=== PATIENT | female | born 1945 | race Caucasian/White ===

== ENCOUNTER 2016-12-11 14:10 | Emergency (ER) | payer MEDICARE, BC ==
--- NOTE | 2016-12-11 17:07 | UC ---
Complaint Female HPI - HPI Summary HPI Summary: Pt c/o sudden onset of dysuria, frequency and urgency X 4 days. Pt's last UTI ~ 3 months ago - History Of Current Complaint Chief Complaint: UCGU Stated Complaint: URINARY Time Seen by Provider: 12/11/16 16:02 Hx Obtained From: Patient ?: No Onset/Duration: Sudden Onset, Lasting Days Timing: Constant Severity Initially: Mild Severity Currently: Mild Pain Intensity: 2 Pain Scale Used: 0-10 Numeric Character: Dull, Burning Aggravating Factor(s): Urination Associated Signs And Symptoms: Positive: Negative - Allergies/Home Medications Allergies/Adverse Reactions: Allergies Allergy/AdvReac Type Severity Reaction Status Date / Time Morphine Allergy Hives Verified 12/11/16 14:36 Home Medications: Home Medications Atorvastatin* [Lipitor 10 MG*] 10 mg PO QPM 12/11/16 [History Confirmed 12/11/16 ] BuPROPion XL* [Bupropion XL*] 300 mg PO DAILY 12/11/16 [History Confirmed ] Bupropion HCl [Bupropion HCl Xl] 150 mg PO BEDTIME 12/11/16 [History Confirmed 12/11/16] Enalapril TAB* [Vasotec TAB*] 20 mg PO BID 12/11/16 [History Confirmed 12/11/16] Escitalopram Oxalate [Lexapro 20 mg] 20 mg PO DAILY 12/11/16 [History Confirmed 12/11/16] Ferrous Fumarate W/ B12-Vit C- [Ferocon] 1 cap PO BID 12/11/16 [History Confirmed 12/11/16] Loratadine 10 mg PO DAILY 12/11/16 [History Confirmed 12/11/16] Metoprolol Tartrate TAB* [Lopressor TAB*] 100 mg PO DAILY 12/11/16 [History Confirmed 12/11/16] Omeprazole CAP* [Prilosec CAP* 20 MG] 20 mg PO BID 12/11/16 [History Confirmed 12/11/16] Ropinirole Hydrochloride [Requip] 1 mg PO QID 12/11/16 [History Confirmed ] PMH/Surg Hx/FS Hx/Imm Hx Previously Healthy: Yes - Surgical History Surgical History: Yes Surgery Procedure, Year, and Place: GASTRIC BYPASS. TKA--R KNEE. TKA--LEFT KNEE X 4. CHOLECYSTECTOMY. TRIGGER FINGER RELEASE--RIGHT HAND. INTESTINAL HERNIA REPAIR - Family History Known Family History: Positive: Cardiac Disease - Social History Occupation: Retired Lives: With Family Alcohol Use: Rare Substance Use Type: None Smoking Status (MU): Current Some Day Smoker Type: Cigarettes Amount Used/How Often: 4 CIGS PER MONTH Length of Time of Smoking/Using Tobacco: 40 YRS Have You Smoked in the Last Year: Yes Review of Systems Constitutional: Negative Skin: Negative Eyes: Negative ENT: Negative Respiratory: Negative Cardiovascular: Negative Gastrointestinal: Negative Genitourinary: Dysuria, Frequency, Urgency Motor: Negative Neurovascular: Negative Musculoskeletal: Negative Neurological: Negative Psychological: Negative Is Patient Immunocompromised?: No All Other Systems Reviewed And Are Negative: Yes Physical Exam Triage Information Reviewed: Yes Appearance: Well-Appearing Vital Signs: Initial Vital Signs Temp 97.5 F 12/11/16 14:19 Pulse 59 12/11/16 14:19 Resp 18 12/11/16 14:19 BP 136/83 12/11/16 14:19 Pulse Ox 100 12/11/16 14:19 Vital Signs Reviewed: Yes Eye Exam: Normal ENT Exam: Normal Neck exam: Normal Respiratory Exam: Normal Cardiovascular Exam: Normal Abdominal Exam: Normal Musculoskeletal Exam: Normal Neurological Exam: Normal Psychological Exam: Normal Skin Exam: Normal Complaint Female Dx - Course Course Of Treatment: I discussed the UA results with the pt. - Differential Dx/Diagnosis Differential Diagnosis/HQI/PQRI: Urinary Tract Infection Provider Diagnoses: UTI Discharge - Discharge Plan Condition: Stable Disposition: HOME Prescriptions: Phenazopyridine TAB* [Pyridium 100 mg TAB*] 100 mg PO TID #6 tab Sulfamethox/Trimethoprim DS* [Bactrim DS 800/160 TAB*] 1 tab PO Q12H #10 tab Patient Education Materials: Urinary Tract Infection in Women (ED) Referrals: Yaima Ledbetter MD [Primary Care Provider] - If Needed Additional Instructions: Please follow up with your PCP or return to clinic as needed.
== END 2016-12-11 16:16 | disposition home or self-care (01) ==
LOC: UCCORT 14:10
DX: N39.0 Urinary tract infection, site not specified (principal); F17.210 Nicotine dependence, cigarettes, uncomplicated; Z88.5 Allergy status to narcotic agent
CPT/HCPCS: 81003; 87077; 87086; 87186; 99212; G0463